=== PATIENT | male | born 1975 ===

== ENCOUNTER 2017-06-24 16:59 | Inpatient (IN) | payer BC ==
[~2017-06-24] VITALS: Ht 188 cm; Wt 81.6 kg
[2017-06-24] MEDS ORDERED: VENL75TA4 PO (17:08)
[2017-06-24] MEDS ORDERED: TRAZ-144 PO (17:08)
--- NOTE | 2017-06-24 17:13 | NUR ---
Dr Malone at the bedside for eval and exam.
[2017-06-24] MEDS ORDERED: IV NORMAL SALINE 1000 ML BAG IV ONE (17:15)
[2017-06-24] MEDS ORDERED: ONDANSETRON 4 MG/2 ML VIAL IV ONE (17:15)
[2017-06-24] MEDS ORDERED: MORPHINE SULFATE 2 MG/1 ML DISP.SYRIN IV ONE (17:15)
[2017-06-24 17:34] LABS: BASOPHILS # (AUTO) 0.1 K/uL (0.0-8.0); BASOPHILS % (AUTO) 0.9 % (0.0-2.0); EOSINOPHILS # (AUTO) 0.1 K/uL (0.0-0.7); EOSINOPHILS % (AUTO) 0.4 % (0.0-7.0); HEMATOCRIT 50.6 % (40-50); HEMOGLOBIN 17.1 G/DL (14.0-18.0); LYMPHOCYTES % (AUTO) 7.6 % (20.5-51.5); MEAN CORPUSCULAR HEMOGLOBIN 33.1 UUG (27.0-31.0); MEAN CORPUSCULAR HGB CONC 34 g/dL (32.0-37.0); MEAN CORPUSCULAR VOLUME 97.9 FL (82.0-92.0); MONOCYTES # (AUTO) 1.2 K/UL (0.1-1.30); MONOCYTES % (AUTO) 9.1 % (0.0-11.0); NEUTROPHILS # (AUTO) 11.3 K/UL (1.8-8.9); PLATELET COUNT (AUTO) 186 K/UL (150-450); RED BLOOD CELL COUNT(AUTO) 5.17 MIL/UL (4.7-6.1); WHITE BLOOD COUNT (AUTO) 13.7 K/UL (4.0-11.2)
[2017-06-24] MEDS ORDERED: MORPHINE SULFATE 4 MG/1 ML DISP.SYRIN ONE ×2 (17:34→20:47)
[2017-06-24] MEDS ORDERED: IOHEXOL 300MG/ML 100 ML INFUS..BTL ONE (17:35)
[2017-06-24] MEDS ORDERED: ONDANSETRON 4 MG/2 ML VIAL ONE ×2 (17:35→19:40)
[2017-06-24] MEDS ORDERED: IV NORMAL SALINE 250 ML IV ONE (17:35)
[2017-06-24] MEDS ORDERED: NORMAL SALINE FLUSH 10 ML DISP.SYRIN ONE (17:35)
[2017-06-24 17:36] LABS: CREATININE 0.9 mg/dL (0.6-1.3)
--- NOTE | 2017-06-24 17:39 | NUR ---
Pt signed consent for IV contrast.
[2017-06-24 17:42] LABS: BILIRUBIN,DIRECT 0.1 mg/dL (0.0-0.2); BILIRUBIN,TOTAL 0.6 mg/dL (0.2-1.0); TOTAL PROTEIN, SERUM 6.8 g/dL (6.4-8.2)
[2017-06-24 17:49] LABS: BAND % (MANUAL) 7 % (0-10); EOSINOPHILS % (MANUAL) 1 % (0-8); LYMPHOCYTES % (MANUAL) 5 % (20-40); MONOCYTES % (MANUAL) 10 % (2-10); NEUTROPHILS % (MANUAL) 77 % (42-75)
--- NOTE | 2017-06-24 18:10 | NUR ---
Pt out of ER for CT.
[2017-06-24] MEDS ORDERED: LORAZEPAM 2 MG/1 ML VIAL IV ONE (18:15)
--- NOTE | 2017-06-24 18:18 | NUR ---
Pt became anxious while in CT, neurophysiology tech notified Dr Malone.
[2017-06-24] MEDS ORDERED: LORAZEPAM 2 MG/1 ML VIAL ONE (18:30)
--- NOTE | 2017-06-24 19:03 | NUR ---
Received report from KATARZYNA Porras. Assumed care of pt at this time.
--- NOTE | 2017-06-24 19:06 | NUR ---
Pt c/o cont severe pain. Dr. Antonio notified, awaiting further orders.
[2017-06-24] MEDS ORDERED: HYDROMORPHONE 1 MG/1 ML DISP.SYRIN IV ONE ×2 (19:30→21:30)
[2017-06-24] MEDS ORDERED: ONDANSETRON IV *ER 4 MG/2 ML VIAL IV ONE (19:30)
--- NOTE | 2017-06-24 19:31 | NUR ---
Pt medicated for discomfort, will monitor for effects of medication. Pt repositioned for comfort
[2017-06-24] MEDS ORDERED: HYDROMORPHONE 2 MG/1 ML DISP.SYRIN ONE ×2 (19:41→21:51)
--- NOTE | 2017-06-24 20:00 | NUR ---
Pt sts pain improved slightly. Sts pain is down to a 5/10. Pt resting in position of comfort for self.
--- NOTE | 2017-06-24 20:26 | NUR ---
Pt sts pain is increasing again and is requesting more pain medication. Dr. Paco marroquinified. Awaiting further orders.
[2017-06-24] MEDS ORDERED: MORPHINE SULFATE 2 MG/1 ML DISP.SYRIN IM ONE (20:30)
[2017-06-24] MEDS ORDERED: MORPHINE SULFATE 4 MG/1 ML DISP.SYRIN IV ONE (20:30)
--- NOTE | 2017-06-24 20:34 | NUR ---
Pt medicated for discomfort, will monitor for effects of medication. Pt repositioned for comfort. Admission pending.
--- NOTE | 2017-06-24 20:56 | NUR ---
Dr. Antonio speaking with Dr. Resendez for admission
--- NOTE | 2017-06-24 21:15 | NUR ---
Report called to KATARZYNA Esteban. Preparing to transfer pt to the floor.
--- NOTE | 2017-06-24 21:40 | NUR ---
Pt cont to c/o severe pain. Dr. Antonio notified and pt medicated prior to transfer to the floor.
[2017-06-24] MEDS ORDERED: VENLAFAXINE 75 MG TABLET PO SCH (21:45)
[2017-06-24] MEDS ORDERED: MAGNESIUM HYDROXIDE 30 ML LIQUID UDC PO PRN (21:45)
[2017-06-24] MEDS ORDERED: ZOLPIDEM 5 MG TABLET PO PRN (21:45)
[2017-06-24] MEDS ORDERED: ACETAMINOPHEN 325 MG TABLET PO PRN (21:45)
[2017-06-24] MEDS ORDERED: Z GUARD REMEDY PASTE 57 GM TUBE TOP PRN (21:45)
[2017-06-24] MEDS ORDERED: ONDANSETRON 4 MG/2 ML VIAL IV PRN (21:45)
[2017-06-24 22:15] VITALS: BP 137/92
[2017-06-24] MEDS: TRAZODONE 50 MG TABLET PO SCH (22:24)
[2017-06-24] MEDS ORDERED: TRAZODONE 50 MG TABLET ONE (22:24)
[2017-06-24] MEDS ORDERED: VENLAFAXINE 75 MG TABLET ONE ×2 (22:25→22:26)
[2017-06-24] MEDS: IV NS 1000 ML 1,000 ML IV PRN (22:27)
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
[2017-06-25] MEDS: HYDROMORPHONE 1 MG/1 ML DISP.SYRIN IV PRN ×2 (00:51→05:06)
[2017-06-25] MEDS ORDERED: HYDROMORPHONE 2 MG/1 ML DISP.SYRIN ONE ×2 (00:57→05:15)
[2017-06-25 05:13] VITALS: BP 125/82
--- NOTE | 2017-06-25 06:30 | NUR ---
PATIENT SLEPT GOOD THROUGH THE NIGHT, STILL WITH COMPLAIN OF PAIN. OTHERWISE VSS, NO RESPIRATORY DISTRESS. CALL LIGHT WITHIN REACH.
[2017-06-25 06:34] LABS: BASOPHILS % (AUTO) 0.1 % (0.0-2.0); EOSINOPHILS # (AUTO) 0.3 K/uL (0.0-0.7); EOSINOPHILS % (AUTO) 1.9 % (0.0-7.0); HEMATOCRIT 47.1 % (40-50); HEMOGLOBIN 16.1 G/DL (14.0-18.0); LYMPHOCYTES # (AUTO) 1.8 K/UL (0.8-4.8); LYMPHOCYTES % (AUTO) 13.4 % (20.5-51.5); MEAN CORPUSCULAR HEMOGLOBIN 33.4 UUG (27.0-31.0); MEAN CORPUSCULAR HGB CONC 34 g/dL (32.0-37.0); MEAN CORPUSCULAR VOLUME 97.7 FL (82.0-92.0); MONOCYTES # (AUTO) 1.6 K/UL (0.1-1.30); MONOCYTES % (AUTO) 11.9 % (0.0-11.0); NEUTROPHILS # (AUTO) 9.8 K/UL (1.8-8.9); NEUTROPHILS % (AUTO) 72.7 % (38.5-71.5); PLATELET COUNT (AUTO) 182 K/UL (150-450); RED BLOOD CELL COUNT(AUTO) 4.82 MIL/UL (4.7-6.1); WHITE BLOOD COUNT (AUTO) 13.5 K/UL (4.0-11.2)
[2017-06-25 06:50] LABS: BILIRUBIN,TOTAL 0.4 mg/dL (0.2-1.0); CREATININE 1.1 mg/dL (0.6-1.3); MAGNESIUM 1.8 mg/dL (1.8-2.4); PHOSPHOROUS 2.5 mg/dL (2.5-4.9); POTASSIUM 3.8 mmol/L (3.5-5.1)
--- NOTE | 2017-06-25 07:20 | NUR ---
Received report from maintenance mechanic 2nd shift nurse, patient ambulating to the restroom, no evidence of distress noted.
[2017-06-25] MEDS ORDERED: HYDROMORPHONE 2 MG/1 ML DISP.SYRIN IV PRN (07:30)
[2017-06-25] MEDS ORDERED: ZOLPIDEM 5 MG TABLET PO PRN ×2 (07:30→21:30)
[2017-06-25] MEDS ORDERED: VENL75CA56 PO (08:37)
[2017-06-25] MEDS ORDERED: TEST75GE TP (08:38)
[2017-06-25] MEDS ORDERED: LORA1TAB PO (08:39)
[2017-06-25] MEDS: VENLAFAXINE XR 75 MG CAP.SR.24H PO SCH (10:33)
[2017-06-25] MEDS: HYDROMORPHONE 2 MG/1 ML DISP.SYRIN IV PRN ×6 (10:33→22:07)
[2017-06-25] MEDS: IV NS 1000 ML 1,000 ML IV PRN (10:54)
[2017-06-25 11:44] VITALS: BP 126/68
--- NOTE | 2017-06-25 12:00 | NUR ---
Called Dr Vega office to see when he will be coming to see the patient. cannot practice here according to him. Notified Dr Resendez and asked to call dr Whitfield. Called Dr. Whitfield and left message because he is in surgery till 6pm according to office staff.
[2017-06-25] MEDS ORDERED: LORAZEPAM 2 MG/1 ML VIAL IV STA (14:17)
[2017-06-25 15:35] VITALS: BP 144/93
--- NOTE | 2017-06-25 17:30 | NUR ---
Called Dr. Whitfield again to see when he will be seeing the patient. Dr Whitfield does not feel comfortable seeing patient as it is out of his scope of practice. Advised to transfer patient to his regular doctor at [facility]. Notified Dr. Resendez, and was instructed to ask isela to arrange a transfer to [facility]. Called Dr. José Miguel Castro at [facility] to see if he will accept the patient this evening and he declined to accept the patient until he is seen by a spinal/neuro surgeon here before patient is transported to stabilize him. Notified Dr. Resendez that Dr Castro will not accept patient, and offered another neuro-surgeon phone number for consultation. Passed information on to next shift and advised that patient does not get out of bed as we do not have a stabilizer for spine during ambulation.
--- NOTE | 2017-06-25 18:12 | NUR ---
Faxed the patient's information per his and his father's verbal request to his Spinal MD - Dr. José Miguel Castro [contact - Ellyn; ; ]. Also faxed it to [facility] [ ; ] and their Transfer Center [ ; ]. Awaiting for admitting MD to confirm and bed availability.
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
--- NOTE | 2017-06-25 21:29 | NUR ---
PATIENT COMPLAINING OF ANXIETY, AND INSOMNIA, NOTIFY TEN BATRES WITH ORDERS.
[2017-06-25] MEDS ORDERED: LORAZEPAM 1 MG TABLET PO PRN (21:30)
[2017-06-25 21:49] VITALS: BP 145/91
[2017-06-25] MEDS: TRAZODONE 50 MG TABLET PO SCH (21:52)
[2017-06-25] MEDS ORDERED: ZOLPIDEM 5 MG TABLET ONE (21:55)
[2017-06-26] MEDS: HYDROMORPHONE 2 MG/1 ML DISP.SYRIN IV PRN ×7 (00:17→19:59)
[2017-06-26 05:47] VITALS: BP 138/86
--- NOTE | 2017-06-26 07:28 | NUR ---
PATIENT SLEPT MOST OF THE NIGHT, CONT ON PAIN MANAGEMENT, VOIDING ON THE URINAL, NO S/S OF DISTRESS. CONT TO MONITOR.
[2017-06-26] MEDS: VENLAFAXINE XR 75 MG CAP.SR.24H PO SCH (08:16)
--- NOTE | 2017-06-26 09:47 | NUR ---
XANAX 0.25MG Q6HR PRN PER DR. SCHAEFER
--- NOTE | 2017-06-26 09:48 | NUR ---
MAKE DILAUDID 2MG Q4H PRN INSTEAd of 1mg dilaudid q2h prn per dr. rudd
[2017-06-26] MEDS: ALPRAZOLAM 0.25 MG TABLET PO PRN ×2 (09:54→18:06)
[2017-06-26 11:39] VITALS: BP 98/62
[2017-06-26 15:13] VITALS: BP 126/87
--- NOTE | 2017-06-26 19:20 | NUR ---
PT IS LAYING IN BED COMFORTABLY. NO S/S OF PAIN/RESPIRATORY DISTRESS NOTED. ALL SAFETY NEEDS ARE MET. IV INTACT/PATENT. PT HAD MRI. VS WNL.
[2017-06-26 20:00] VITALS: BP 133/91
[2017-06-26] MEDS: TRAZODONE 50 MG TABLET PO SCH (21:19)
[2017-06-26] MEDS ORDERED: ZOLPIDEM 5 MG TABLET PO PRN (21:30)
[2017-06-26] MEDS ORDERED: ZOLPIDEM 5 MG TABLET ONE (21:43)
--- NOTE | 2017-06-26 22:03 | NUR ---
RECEIVED PATIENT SITTING IN BED DURING THE REPORT. GIVEN IV DILAUDID 2MG FOR COMPLAINT OF LOWER BACK PAIN. HE WAS COMPLAINING OF NOT SLEEPING GOOD LAST NIGHT BECAUSE HE ONLY GOT 50 MG TRAZODONE TOLD THE FLAME CUTTING MACHINE OPERATOR "I TAKE 150 MG TRAZODONE AT HOME." NOTED TO OLIVE WESTON VIA PHONE SHE SAID THE DOSE IS TOO MUCH FOR THE PATIENT. EXPLAINED TO PATIENT THAT HE CAN'T GET THE DOSE PER REQUEST. GIVEN 50 MG TRAZODONE INSTEAD ORDERED THEN AFTERWARDS HE ASKED FOR DOSE OF AMBIEN TOO. I TOLD HIM THAT I WILL GET BACK THE ORDER OF AMBIEN SINCE HE ONLY WANTED TRAZODONE EARLIER. AT AROUND 2145 HRS HE CALLED SAYING HE WANTS TO SPEAK TO THE DOCTOR, I CAME TO SEE THE PATIENT HE IS VERY UPSET AND YELLED SAYING "I'M NOT SPENDING ANOTHER NIGHT IN THIS HOSPITAL AND NOT GONNA SLEEP AGAIN, I'M IN PAIN." EXPLAINED TO HIM THAT AMBIEN IS TO BE GIVEN TO HIM ON TOP OF TRAZODONE 50 MG. AFTER THAT HE WAS FINE BUT STILL UPSET. OTHERWISE PATIENT IS IN BED AT THIS TIME. VITAL SIGNS ARE STABLE. NOT IN RESPIRATORY DISTRESS. CALL LIGHT WITHIN REACH.
[2017-06-27] MEDS: HYDROMORPHONE 2 MG/1 ML DISP.SYRIN IV PRN ×6 (00:06→20:46)
--- NOTE | 2017-06-27 00:15 | NUR ---
CAME TO CHECK THE PATIENT IN THE ROOM HE WANTS IV FLUIDS (NS 75 ML/HR) TO BE STOPPED TONIGHT. HE SAID HE DON'T WANT THE ALARM TO GO OFF AND WAKE HIM UP. NOTED TO DR. OLIVE Kurtz
[2017-06-27 05:49] VITALS: BP 114/71
--- NOTE | 2017-06-27 06:37 | NUR ---
PATIENT SLEPT INTERMITTENTLY THROUGH THE NIGHT. HE WANTED TO TAKE A SHOWER THIS MORNING BUT THEN CHANGED HIS MIND AND RATHER DO IT AFTER BREAKFAST. OTHERWISE HE HAS NO OTHER COMPLAINT, NO RESPIRATORY DISTRESS. CALL LIGHT WITHIN REACH.
[2017-06-27 06:52] LABS: CREATININE 1.1 mg/dL (0.6-1.3); MAGNESIUM 2.2 mg/dL (1.8-2.4); PHOSPHOROUS 3.2 mg/dL (2.5-4.9); POTASSIUM 4.3 mmol/L (3.5-5.1)
[2017-06-27 06:56] LABS: BASOPHILS # (AUTO) 0.1 K/uL (0.0-8.0); BASOPHILS % (AUTO) 0.6 % (0.0-2.0); EOSINOPHILS # (AUTO) 0.2 K/uL (0.0-0.7); EOSINOPHILS % (AUTO) 2.7 % (0.0-7.0); HEMATOCRIT 50.7 % (40-50); HEMOGLOBIN 17.6 G/DL (14.0-18.0); LYMPHOCYTES % (AUTO) 23.3 % (20.5-51.5); MEAN CORPUSCULAR HEMOGLOBIN 33.9 UUG (27.0-31.0); MEAN CORPUSCULAR HGB CONC 35 g/dL (32.0-37.0); MEAN CORPUSCULAR VOLUME 97.7 FL (82.0-92.0); MONOCYTES # (AUTO) 1.6 K/UL (0.1-1.30); MONOCYTES % (AUTO) 19.1 % (0.0-11.0); NEUTROPHILS # (AUTO) 4.6 K/UL (1.8-8.9); NEUTROPHILS % (AUTO) 54.3 % (38.5-71.5); PLATELET COUNT (AUTO) 182 K/UL (150-450); RED BLOOD CELL COUNT(AUTO) 5.19 MIL/UL (4.7-6.1)
[2017-06-27 07:06] LABS: WHITE BLOOD COUNT (AUTO) 8.5 K/UL (4.0-11.2)
--- NOTE | 2017-06-27 08:00 | NUR ---
PATIENT TEACHING DONE ON HOW TO USE [employer] BRACE AND TO USE AT ALL TIMES WHEN OUT OF BED AND WITH PT/OT. PATIENT VOICED UNDERSTANDING AND RETURNED DEMONSTRATION.
[2017-06-27] MEDS: VENLAFAXINE XR 75 MG CAP.SR.24H PO SCH (08:06)
[2017-06-27] MEDS: ALPRAZOLAM 0.25 MG TABLET PO PRN ×2 (09:58→19:47)
--- NOTE | 2017-06-27 10:20 | NUR ---
PATIENT AMBULATED WITH PT AND TOLERATED WELL.
[2017-06-27 11:09] LABS: BAND % (MANUAL) 2 % (0-10); EOSINOPHILS % (MANUAL) 4 % (0-8); LYMPHOCYTES % (MANUAL) 17 % (20-40); MONOCYTES % (MANUAL) 17 % (2-10); NEUTROPHILS % (MANUAL) 60 % (42-75)
[2017-06-27 11:51] VITALS: BP 124/83
[2017-06-27] MEDS ORDERED: DEXAMETHASONE SOD PHOSPHATE 10 MG INJ IM ONE (12:15)
[2017-06-27] MEDS: GABAPENTIN 300 MG CAPSULE PO SCH ×2 (12:56→18:09)
[2017-06-27 16:12] VITALS: BP 134/94
--- NOTE | 2017-06-27 18:49 | NUR ---
Pt sitting comfortably in semi-fowlers position in bed. Pt and family were seen by MD. All questions answered. Pain management has been successful throughout this shift through the use of PRN pain medication utilized to reduce 8/10 pain to a tolerable level. Pt denies any pain at this time. Call light within reach. Will continue to monitor and endorse to shift leader.
--- NOTE | 2017-06-27 19:30 | NUR ---
RECEIVED PATIENT FROM DAY SHIFT NURSE. SHIFT REPORT AT BEDSIDE. PATIENT A/O. PERTINENT ASSESSMENTS DONE. CALL LIGHT PLACED WITHIN REACH OF PATIENT. WILL CONTINUE TO MONITOR PATIENT THROUGH OUT SHIFT.
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
[2017-06-27 20:18] VITALS: BP 144/98
--- NOTE | 2017-06-27 20:30 | NUR ---
PATIENT CALM WITH NO SIGNS OF ANXIETY. REASSESSED ANXIETY LEVEL AND PATIENT MENTIONED HE WAS DOING MUCH BETTER. CURRENTLY STABLE. WILL CONTINUE TO MONITOR PATIENT THROUGH OUT SHIFT.
[2017-06-27] MEDS ORDERED: TRAZODONE 100 MG TABLET PO SCH (21:00)
[2017-06-28] MEDS: HYDROMORPHONE 2 MG/1 ML DISP.SYRIN IV PRN ×4 (00:51→14:10)
[2017-06-28 06:00] VITALS: BP 117/71
[2017-06-28] MEDS: VENLAFAXINE XR 75 MG CAP.SR.24H PO SCH (08:22)
[2017-06-28] MEDS: GABAPENTIN 300 MG CAPSULE PO SCH ×2 (08:23→12:36)
[2017-06-28] MEDS: ALPRAZOLAM 0.25 MG TABLET PO PRN (08:27)
--- NOTE | 2017-06-28 09:40 | NUR ---
pt seen on rounding. pt is alert and oriented x4. no complains of pain on rounding. vitals stable. no signs of acute distress. pt asked for xanax. xanax given. pt took morning meds as prescribed. will continue to monitor.
[2017-06-28 11:04] VITALS: BP 137/77
[2017-06-28] MEDS ORDERED: NAPR500T PO (13:48)
[2017-06-28] MEDS ORDERED: HYDR-548 PO (13:48)
[2017-06-28 15:23] VITALS: BP 134/92
--- NOTE | 2017-06-28 16:08 | NUR ---
pt left at 1630 accompanied by screed operator with wheelchair. pt has no signs of acute distress. vitals stable upon dicharge. pt given discharge instructions along with discharge summary of care. pt verbalizes understanding of care. pt given exitcare instructions such as management of pain and smoking cessation. iv discontinued and taken out. no wound pictures taken. all belongings list reconciled and signed. prescriptions given to patient. pt left with family
== END 2017-06-28 15:45 | disposition home or self-care (01) | DRG 552 ==
LOC: ER 17:04 → MED 21:39
PROVIDERS: ADMIT Internal Medicine; ATTEND Internal Medicine
DX: M51.86 Other intervertebral disc disorders, lumbar region (principal); F32.9 Major depressive disorder, single episode, unspecified; F84.0 Autistic disorder; D72.828 Other elevated white blood cell count; Y93.9 Activity, unspecified; F42.9 Obsessive-compulsive disorder, unspecified; G89.29 Other chronic pain; V49.9XXA Car occupant (driver) (passenger) injured in unspecified traffic accident, initial encounter; Y92.89 Other specified places as the place of occurrence of the external cause; M48.06 Spinal stenosis, lumbar region
CPT/HCPCS: 36415; 71260; 72125; 72148; 83735; 84100; 85025; 85730; A4663; J1100; J1170; J2060; J2270; J2405; J3490; J7030; J7050; Q9967